=== PATIENT | male | born 1950 | race Caucasian/White ===

== ENCOUNTER → 2019-07-26 | Outpatient (CLI) | payer MEDICARE ==
--- NOTE | 2019-07-26 14:47 | RAD ---
CLINICAL HISTORY: Epigastric abdominal pain COMPARISON: None available. TECHNIQUE: Ultrasound of the upper abdomen was performed. FINDINGS: The liver measures 15.4 cm in length in the right mid clavicular line. Borderline increased hepatic echogenicity relative to the right kidney may be seen with hepatic steatosis. There are no focal liver lesions. Flow seen within the portal veins. The gallbladder is normal in appearance without evidence for cholelithiasis. There is no wall thickening or pericholecystic fluid. There is no pain with direct transducer pressure over the gallbladder. The common bile duct measures 0.2 cm. The spleen is normal in size, measuring 9.5 cm. The head and body of the pancreas are unremarkable. The tail is obscured by intestinal gas.. The right kidney measures 10.4 cm in bipolar length. A 2 x 1.8 x 0.9 cm hypoechoic cystic structure is seen with thin internal septations in the low-interpolar right kidney. Normal renal cortical echogenicity. No hydronephrosis. The left kidney measures 10.6 cm in bipolar length. No focal renal lesion. Normal renal cortical echogenicity. No hydronephrosis. Visualized portions of the abdominal aorta and inferior vena cava are unremarkable. There is no free fluid in the upper abdomen. IMPRESSION: 1. Borderline increased hepatic echogenicity relative to the right kidney may be seen with hepatic steatosis. 2. No sonographic evidence for acute cholecystitis. Electronically signed by: Justin Romero MD (07/26/2019 2:45 PM) [facility]
== END | disposition home or self-care (01) ==
LOC: US 09:46
PROVIDERS: ATTEND Internal Medicine Gastroenterology
DX: R10.13 Epigastric pain (principal)
CPT/HCPCS: 76700